=== PATIENT | male | born 1980 | race Caucasian/White ===

== ENCOUNTER 2017-09-19 04:15 | Emergency (ER) | payer OTHER ==
[~2017-09-19] VITALS: Ht 175.3 cm; Wt 74.8 kg
[2017-09-19 04:25] VITALS: BP 155/87
--- NOTE | 2017-09-19 04:32 | NUR ---
AMBULATED TO ER BED 11
--- NOTE | 2017-09-19 04:35 | NUR ---
37 Y/O M W/C/O L THUMB SWELLING AND PAIN X 1 WK. PT DENIES ANY INJURY TO IT. SKIN WARM, CAP LESS THAN 3, SWELLING NOTED TO AFFECTED FINGER. ER MADE AWARE.
--- NOTE | 2017-09-19 04:44 | NUR ---
Patient being evaluated by physician at bedside.
--- NOTE | 2017-09-19 04:50 | NUR ---
LIDOCAINE 1% ADMINISTERED BY ER MD AT BEDSIDE. PT TOLERATED WELL.
[2017-09-19] MEDS ORDERED: LIDOCAINE 1% ***ER ONLY *** 50 ML ONE (04:54)
[2017-09-19] MEDS ORDERED: MORPHINE SULFATE 4 MG/ML SYR IM ONE (05:00)
--- NOTE | 2017-09-19 05:23 | NUR ---
N ADR TO LIDOCAINE 1% NOTED UP TO THIS POINT. WILL CONT TO MONITOR PT.
[2017-09-19] MEDS ORDERED: HYDROmorphone 1 MG/ML AMP IM ONE (05:40)
[2017-09-19 06:31] VITALS: BP 142/87
--- NOTE | 2017-09-19 06:31 | NUR ---
Patient discharged with v/s stable. Written and verbal after care instructions given and explained. Patient alert, oriented and verbalized understanding of instructions. Ambulatory with steady gait. All questions addressed prior to discharge. ID band removed. Patient advised to follow up with [facility]. Rx of TRAMADOL, AND CLINDAMYCIN given. Patient educated on indication of medication including possible reaction and side effects. Opportunity to ask questions provided and answered.
[2017-09-19] MEDS ORDERED: LIDOCAINE 1% 500 MG/50 ML VIAL INJ SCH (06:40)
== END 2017-09-19 06:31 | disposition home or self-care (01) ==
LOC: MED 04:15
DX: L03.012 Cellulitis of left finger (principal); F17.200 Nicotine dependence, unspecified, uncomplicated
CPT/HCPCS: 64450; 73140; 96372; 99284; J1170; J2001; J2270; Q0092

== ENCOUNTER 2017-09-21 14:50 | Emergency (ER) | payer OTHER ==
[~2017-09-21] VITALS: Ht 175.3 cm; Wt 74.8 kg
[2017-09-21 15:18] VITALS: BP 147/117
--- NOTE | 2017-09-21 15:42 | NUR ---
REFUSED TO BE SEEN---LEFT
== END 2017-09-21 15:40 | disposition left against medical advice (07) ==
LOC: MED 14:50
DX: M79.645 Pain in left finger(s) (principal); Z53.21 Procedure and treatment not carried out due to patient leaving prior to being seen by health care provider